=== PATIENT | female | born 1980 | race Caucasian/White ===

== ENCOUNTER → 2016-10-26 | Outpatient (CLI) | payer MEDICAID ==
--- NOTE | 2016-10-26 15:17 | Diagnostic Imaging Report ---
PROCEDURE: MRI lumbar spine. TECHNIQUE: Multiplanar, multisequence MRI of the lumbar spine was performed without contrast. INDICATION: Back pain. FINDINGS: The alignment of the posterior spinal line is satisfactory. The vertebral body heights are preserved. There is preserved disc height and disc signal at all levels. The cauda equina and conus medullaris appear grossly unremarkable. The bone marrow appears unremarkable. T12-L1: There is no disc herniation, no spinal canal, or foraminal stenosis. L1-L2: No disc herniation, no spinal canal, or foraminal stenosis. L2-L3: No disc herniation. There is mild facet hypertrophy. No central canal, lateral recess, or foraminal stenosis. L3-L4: There is a minimal disc bulge with biforaminal minimally prominent component seen. There is mild facet and ligamentous flavum hypertrophy without central canal, lateral recess, or foraminal stenosis. L4-L5: There is a very minimal disc bulge with mildly prominent right foraminal component and suggestion of an annular fissure seen centrally better seen on the axial image. There is bilateral [id number] facet hypertrophy. No central canal stenosis. There is mild narrowing of the lateral recess bilaterally, more on the right side. The foramina demonstrate no significant stenosis. L5-S1: There is no disc herniation. There is mild facet arthropathy. No central canal or right lateral recess stenosis. There is mild left lateral recess stenosis. Mild bilateral foraminal narrowing is seen. IMPRESSION: Mild facet and minimal disc degenerative changes. There is no high-grade spinal canal or foraminal stenosis at any level. Dictated by: Dictated on workstation # [id number]
== END ==
LOC: RAD 14:04
PROVIDERS: ATTEND Nurse Practitioner Family
DX: M54.42 Lumbago with sciatica, left side (principal)
CPT/HCPCS: 72148